=== PATIENT | female | born 1950 | race Caucasian/White ===

== ENCOUNTER 2016-12-03 19:30 | Emergency (ER) | payer MEDICARE, BC ==
[2016-12-03] MEDS ORDERED: METHYLPREDNISOLONE PF 125MG/VIAL IVP ONE (19:54)
[2016-12-03 20:28] LABS: BASO % 0.6 % (0-6); EOS % 3.8 % (0-6); GRAN % 60.3 % (47-80); HEMATOCRIT 40.4 % (35.0-47.0); HEMOGLOBIN 13.3 gm/dl (11.6-16.0); MEAN CELL VOLUME 90.6 fl (81-97); MEAN CORPUSCULAR HEMOGLOBIN 29.8 pg (27-33); MEAN CORPUSCULAR HGB CONC 32.9 g/dl (32-36); MEAN PLATELET VOLUME 10.6 fl (7.4-10.4); MONO % 7.3 % (0-9); PLATELET COUNT 222 K/uL (130-400); RED BLOOD COUNT 4.46 M/uL (3.80-5.40); RED CELL DISTRIBUTION WIDTH 13.1 % (11.5-14.5); WHITE BLOOD COUNT W/O DIFF 8.1 K/uL (4.2-12.2)
[2016-12-03 20:40] LABS: ANION GAP 15.9 (7-16); BLOOD UREA NITROGEN 12 mg/dL (7-17); CARBON DIOXIDE 23.1 mmol/L (22-30); CREATININE 0.6 mg/dL (0.52-1.04); EST GLOMERULAR FILTRATION RATE > 60 ml/min; GLUCOSE,RANDOM 124 mg/dL (70-110)
[2016-12-03 21:01] LABS: ERYTHROCYTE SEDIMENTATION RATE 5 mm/hr (0-30)
[2016-12-03 21:11] LABS: THYROID STIMULATING HORMONE 2.31 uIU/ml (0.465-4.68)
--- NOTE | 2016-12-03 21:37 | Emergency Department Record ---
History of Present Illness - General Chief Complaint: Difficulty Breathing Stated Complaint: ROBIN Time Seen by Provider: 12/03/16 19:45 Source: Patient Mode of Arrival: Wheelchair Limitations: No limitations - History of Present Illness Initial Comments: pt feels like she is having difficulty getting air out and resorts to pursed lip breathing. she feels like she has something obstructing her airway. she has had this problem for 2 months and is scheduled to see ent on monday [2 days] . her cough is usually nonproductive but brings up occasional flem. her symptoms improve when she lays flat. MD Complaint: Shortness of breath Onset/Timin -: Days(s) Severity: Mild Quality: Other Consistency: Other Improves With: Other Worsens With: Other Known History Of: Other Context: Other Associated Symptoms: Denies other symptoms, Cough, Sputum production Treatments Prior to Arrival: None - Related Data Home Medications Medication Instructions Recorded Confirmed Last Taken Cholecalciferol (Vitamin D3) 50,000 unit PO WEEKLY cap 12/10/15 12/03/16 [Vitamin D3] Allergies Allergy/AdvReac Type Severity Reaction Status Date / Time erythromycin base Allergy Intermediate ABDOMINAL Unverified 11/23/16 10:04 PAIN hydrocodone bitartrate AdvReac Intermediate ALTERED Unverified 11/23/16 10:04 [From Vicodin] MENTAL STATUS prednisone AdvReac Mild ALTERED Unverified 11/23/16 10:04 MENTAL STATUS Travel Screening - Travel/Exposure Within Last 30 Days Have you traveled within the last 30 days?: No - Travel/Exposure Within Last Year Have you traveled outside the [place] in the last year?: No - Additonal Travel Details Have you been exposed to anyone with a communicable illness?: No - Travel Symptoms Symptom Screening: None Review of Systems Reviewed: No additional complaints except as noted below Constitutional: Reports: As per HPI. Denies: Chills, Fever, Malaise, Night sweats, Weakness, Weight change Eyes: Reports: As per HPI. Denies: Eye discharge, Eye pain, Photophobia, Vision change ENT: Reports: As per HPI. Denies: Congestion, Dental pain, Ear pain, Epistaxis , Hearing loss, Throat pain Respiratory: Reports: As per HPI. Denies: Cough, Dyspnea, Hemoptysis, Stridor, Wheezes Cardiovascular: Reports: As per HPI. Denies: Arrhythmia, Chest pain, Dyspnea on exertion, Edema, Murmurs, Orthopnea, Palpitations, Paroxysmal nocturnal dyspnea, Rheumatic Fever, Syncope Endocrine: Reports: As per HPI. Denies: Fatigue, Heat or cold intolerance, Polydipsia, Polyuria Gastrointestinal: Reports: As per HPI. Denies: Abdominal pain, Constipation, Diarrhea, Hematemesis, Hematochezia, Melena, Nausea, Vomiting Genitourinary: Reports: As per HPI. Denies: Abnormal menses, Discharge, Dyspareunia, Dysuria, Frequency, Hematuria, Incontinence, Retention, Urgency Musculoskeletal: Reports: As per HPI. Denies: Arthralgia, Back pain, Gout, Joint swelling, Myalgia, Neck pain Skin: Reports: As per HPI. Denies: Bruising, Change in color, Change in hair/ nails, Lesions, Pruritus, Rash Neurological: Reports: As per HPI. Denies: Abnormal gait, Confusion, Headache, Numbness, Paresthesias, Seizure, Tingling, Tremors, Vertigo, Weakness Psychiatric: Reports: As per HPI. Denies: Anxiety, Auditory hallucinations, Depression, Homicidal thoughts, Suicidal thoughts, Visual hallucinations Hematological/Lymphatic: Reports: As per HPI. Denies: Anemia, Blood Clots, Easy bleeding, Easy bruising, Swollen glands Past Medical History - SOCIAL HISTORY Smoking Status: Former smoker Alcohol Use: None Drug Use: None - RESPIRATORY Hx Respiratory Disorders: Yes Hx Asthma: Yes Hx COPD: Yes - CARDIOVASCULAR Hx Cardio Disorders: Yes Hx Hypertension: Yes (Lisinopril good control) - NEURO Hx Neuro Disorders: Yes Hx Dizziness: Yes (hx vertigo "water in ears") - GI Hx GI Disorders: Yes Hx Diverticulitis: Yes Hx of Polyps: Yes (2" polyp removed surgically-not CA) - Hx Genitourinary Disorders: No Comment:: hyst - ENDOCRINE Hx Endocrine Disorders: Yes Hx Thyroid Disease: Yes - MUSCULOSKELETAL Hx Musculoskeletal Disorders: Yes Hx Arthritis: Yes Hx Back Injury: Yes - PSYCH Hx Psych Problems: No - HEMATOLOGY/ONCOLOGY Hx Hematology/Oncology Disorders: Yes Hx Anemia: Yes (in past,not now) Hx Blood Transfusions: Yes Hx Blood Transfusion Reaction: No Family Medical History Any Significant Family History?: No Hx Alcohol Use: Father, Mother, Brother/Sister Hx Anxiety: Mother Hx Cancer: Mother *Cancer Comment: breast Hx Dementia: Father Hx Depression: Mother Hx Diabetes: Mother *Heart Comment: uncle Hx HTN: Father, Mother Hx Kidney Disease: Children *Kidney Comment: son-kidney stones Hx Resp Disorders: Father, Mother *Resp Comment: copd *Stroke Comment: aunt Physical Exam - General General Appearance: Alert, Oriented x3, Cooperative, Mild distress - Head Head exam: Normal inspection - Eye Eye exam: Normal appearance, PERRL, EOMI Pupils: Normal accommodation - ENT ENT exam: Normal exam, Mucous membranes moist, Normal external ear exam, Normal orophraynx Ear exam: Normal external inspection. negative: External canal tenderness Nasal Exam: Normal inspection. negative: Discharge, Sinus tenderness Mouth exam: Normal external inspection, Tongue normal Teeth exam: Normal inspection. negative: Dental caries Throat exam: Normal inspection. negative: Tonsillar erythema, Tonsillar exudate - Neck Neck exam: Normal inspection, Full ROM. negative: Tenderness - Respiratory Respiratory exam: Normal lung sounds bilaterally. negative: Respiratory distress - Cardiovascular Cardiovascular Exam: Regular rate, Normal rhythm, Normal heart sounds - GI/Abdominal GI/Abdominal exam: Soft, Normal bowel sounds. negative: Tenderness - Rectal Rectal exam: Deferred - exam: Deferred - Extremities Extremities exam: Normal inspection, Full ROM, Normal capillary refill. negative: Tenderness - Back Back exam: Reports: Normal inspection, Full ROM. Denies: Muscle spasm, Rash noted, Tenderness - Neurological Neurological exam: Alert, Normal gait, Oriented X3, Reflexes normal - Psychiatric Psychiatric exam: Normal affect, Normal mood - Skin Skin exam: Dry, Intact, Normal color, Warm Course Vital Signs 12/03/16 12/03/16 19:33 20:00 Temperature 98.1 F Pulse Rate 81 93 H Respiratory 24 Rate Blood Pressure 162/77 Pulse Ox 97 96 - Reevaluation(s) Reevaluation #1: 12/03/16 21:37 pt feels better 12/03/16 21:42 Medical Decision Making - Lab Data Result diagrams: 12/03/16 20:20 12/03/16 20:20 Lab Results 12/03/16 12/03/16 Range/Units 20:20 20:20 WBC 8.1 (4.2-12.2) K/uL RBC 4.46 (3.80-5.40) M/uL Hgb 13.3 (11.6-16.0) gm/dl Hct 40.4 (35.0-47.0) % MCV 90.6 (81-97) fl MCH 29.8 (27-33) pg MCHC 32.9 (32-36) g/dl RDW 13.1 (11.5-14.5) % Plt Count 222 (130-400) K/uL MPV 10.6 H (7.4-10.4) fl Gran % 60.3 (47-80) % Lymphocytes % 28.0 (16-45) % Monocytes % 7.3 (0-9) % Eosinophils % 3.8 (0-6) % Basophils % 0.6 (0-6) % ESR 5 (0-30) mm/hr Sodium 140 (136-145) mmol/L Potassium 4.1 (3.5-5.1) mmol/L Chloride 101 (98-107) mmol/L Carbon Dioxide 23.1 (22-30) mmol/L Anion Gap 15.9 (7-16) BUN 12 (7-17) mg/dL Creatinine 0.6 (0.52-1.04) mg/dL Estimated GFR > 60 ml/min Random Glucose 124 H (70-110) mg/dL Calcium 8.8 (8.5-10.1) mg/dL TSH 2.31 (0.465-4.68) uIU/ml Disposition Disposition: Discharge Clinical Impression: Shortness of Breath Disposition: Home, Self-Care Condition: (1) Good Instructions: Dyspnea (ED) Additional Instructions: follow up with ent on monday without fail. return sooner if worse Forms: Patient Portal Access
--- NOTE | 2016-12-07 05:16 | RADIOLOGY REPORT ---
EXAM: NECK, SOFT TISSUE HISTORY: DYSPNEA. CONGESTION. TECHNIQUE: Soft tissue neck, two views. FINDINGS: No precervical soft tissue swelling. There are mild scattered degenerative changes within the cervical spine. IMPRESSION: UNREMARKABLE NECK SOFT TISSUE RADIOGRAPHS. JOB NUMBER: [id number] MTDD
--- NOTE | 2016-12-07 05:17 | RADIOLOGY REPORT ---
EXAM: CHEST 2 VIEWS HISTORY: DYSPNEA. TECHNIQUE: Chest two-view. COMPARISON: 07/04/16. FINDINGS: The heart is not enlarged. There appears to be scattered linear densities within the lungs favoring atelectasis or scar. No focal consolidation or pleural effusion. IMPRESSION: SCATTERED ATELECTASIS OR SCARRING WITHIN THE LUNGS. NO CLEARLY ACUTE CARDIOPULMONARY ABNORMALITY. JOB NUMBER: [id number] MTDD
== END 2016-12-03 21:54 | disposition home or self-care (01) ==
LOC: ER 19:30
DX: R06.02 Shortness of breath (principal); R05 Cough; I10 Essential (primary) hypertension; J44.9 Chronic obstructive pulmonary disease, unspecified; Z87.891 Personal history of nicotine dependence
CPT/HCPCS: 70360; 71020; 80048; 84443; 85025; 85651; 94640; 96374; 99284; J2930

== ENCOUNTER 2017-03-23 11:23 | Day surgery (SDC) | payer MEDICARE, BC ==
[2017-03-23] MEDS ORDERED: MIDAZOLAM HCL 2MG/2ML VIAL IV ONE (14:00)
[2017-03-23] MEDS ORDERED: PROPOFOL 10 MG/ML VIAL IV ONE (14:00)
[2017-03-23] MEDS ORDERED: LIDOCAINE 2% MDV (20MG/ML) 20ML VIAL IV ONE (14:00)
--- NOTE | 2017-03-28 11:22 | Operative Note ---
DATE OF SURGERY: 03/23/2017 OPERATION: ESOPHAGOGASTRODUODENOSCOPY with biopsy. PREOPERATIVE DIAGNOSIS: Heartburn. POSTOPERATIVE DIAGNOSIS: Irregular Z line, otherwise normal exam. PROCEDURE: After informed consent was obtained from the patient, she was placed in the left lateral decubitus position in the endoscopy suite, sedated and monitored by the department of anesthesia. A well-lubricated OGL216 gastroscope was placed in the posterior oropharynx and under direct visualization passed to the proximal esophagus. The endoscope was advanced through the proximal, mid, and distal esophagus. The GE junction was slightly irregular. The remainder of the esophagus was normal. The gastric body, antrum, pylorus, duodenal bulb and sweep were unrevealing. J-turn views of the proximal stomach were unremarkable. The endoscope was then straightened. The irregular Z line was biopsied. The endoscope removed from the patient with no new findings noted. RECOMMENDATIONS: Based on the patient's breakthrough symptoms, it seems reasonable to increase her omeprazole to 20 mg twice per day. We will await results of tissue histology. As always, thank you for allowing me to participate in the healthcare of your patients. CC: Dr. babatunde WHELAN
== END 2017-03-23 13:30 | disposition home or self-care (01) ==
LOC: HOP 11:23
PROVIDERS: ATTEND Internal Medicine Gastroenterology
DX: K21.0 Gastro-esophageal reflux disease with esophagitis (principal); I10 Essential (primary) hypertension; E03.9 Hypothyroidism, unspecified

== ENCOUNTER 2017-07-22 23:52 | Emergency (ER) | payer MEDICARE, BC | END 2017-07-23 00:35 | disposition left against medical advice (07) | LOC: ER 23:52 | DX: Z53.20 Procedure and treatment not carried out because of patient's decision for unspecified reasons (principal) ==

== ENCOUNTER 2017-07-23 14:16 | Emergency (ER) | payer MEDICARE, BC ==
[2017-07-23] MEDS ORDERED: DIPHENHYDRAMINE HCL IV 50 MG/ML VIAL IVP ONE (15:14)
[2017-07-23] MEDS ORDERED: METHYLPREDNISOLONE PF 125MG/VIAL IVP ONE (15:14)
[2017-07-23] MEDS ORDERED: IPRATROPIUM/ALBUTEROL (0.5MG/3MG) NEB INH ONE (15:29)
[2017-07-23 17:01] LABS: BASO % 0.5 % (0-6); EOS % 2.6 % (0-6); GRAN % 64.1 % (47-80); HEMATOCRIT 41.5 % (35.0-47.0); HEMOGLOBIN 13.3 gm/dl (11.6-16.0); LYMPH % 24.9 % (16-45); MEAN CELL VOLUME 89.2 fl (81-97); MEAN CORPUSCULAR HEMOGLOBIN 28.6 pg (27-33); MEAN PLATELET VOLUME 10.9 fl (7.4-10.4); MONO % 7.9 % (0-9); PLATELET COUNT 231 K/uL (130-400); RED BLOOD COUNT 4.65 M/uL (3.80-5.40); RED CELL DISTRIBUTION WIDTH 13.8 % (11.5-14.5); WHITE BLOOD COUNT W/O DIFF 7.8 K/uL (4.2-12.2)
[2017-07-23 17:23] LABS: ALB/GLOB RATIO 1.7 (1.1-1.8); ALBUMIN 4.5 g/dL (4.0-5.0); ALKALINE PHOSPHATASE 75 U/L (35-104); ALT/SGPT 23 U/L (<33); AST/SGOT 18 U/L (10.0-35.0); BLOOD UREA NITROGEN 12 mg/dL (8-23); CREATININE 0.7 mg/dL (0.5-0.9); EST GLOMERULAR FILTRATION RATE > 60 mL/min; GLUCOSE,RANDOM 100 mg/dL (74-109); TOTAL PROTEIN 7.1 g/dL (6.6-8.7)
--- NOTE | 2017-07-23 18:30 | Emergency Department Record ---
History of Present Illness - General Chief Complaint: Shortness of breath Stated Complaint: SHORTNESS OF BREATH Time Seen by Provider: 07/23/17 14:46 Source: Patient Mode of Arrival: Ambulatory Limitations: No limitations - History of Present Illness Initial Comments: pt feels she is having trouble getting air in and out. she has had these problems for months. she has seen an ent and gi dr and dr stephenson. she has been dxd with reflux. she comes because she is frustrated with not being able to control it. MD Complaint: Shortness of breath Onset/Timin -: Week(s) Improves With: Rest Known History Of: Asthma, COPD Associated Symptoms: Denies other symptoms - Related Data Previous Rx's Medication Instructions Recorded Levofloxacin [Levaquin Tab] 500 mg PO DAILY #9 tab 07/23/17 Allergies Allergy/AdvReac Type Severity Reaction Status Date / Time erythromycin base Allergy Intermediate ABDOMINAL Verified 07/23/17 14:50 PAIN hydrocodone bitartrate AdvReac Intermediate ALTERED Verified 07/23/17 14:50 [From Vicodin] MENTAL STATUS prednisone AdvReac Mild ALTERED Verified 07/23/17 14:50 MENTAL STATUS Travel Screening - Travel/Exposure Within Last 30 Days Have you traveled within the last 30 days?: No - Travel/Exposure Within Last Year Have you traveled outside the [place] in the last year?: No - Additonal Travel Details Have you been exposed to anyone with a communicable illness?: No - Travel Symptoms Symptom Screening: None Review of Systems Reviewed: No additional complaints except as noted below Constitutional: Reports: As per HPI. Denies: Chills, Fever, Malaise, Night sweats, Weakness, Weight change Eyes: Reports: As per HPI. Denies: Eye discharge, Eye pain, Photophobia, Vision change ENT: Reports: As per HPI. Denies: Congestion, Dental pain, Ear pain, Epistaxis , Hearing loss, Throat pain Respiratory: Reports: As per HPI. Denies: Cough, Dyspnea, Hemoptysis, Stridor, Wheezes Cardiovascular: Reports: As per HPI. Denies: Arrhythmia, Chest pain, Dyspnea on exertion, Edema, Murmurs, Orthopnea, Palpitations, Paroxysmal nocturnal dyspnea, Rheumatic Fever, Syncope Endocrine: Reports: As per HPI. Denies: Fatigue, Heat or cold intolerance, Polydipsia, Polyuria Gastrointestinal: Reports: As per HPI. Denies: Abdominal pain, Constipation, Diarrhea, Hematemesis, Hematochezia, Melena, Nausea, Vomiting Genitourinary: Reports: As per HPI. Denies: Abnormal menses, Discharge, Dyspareunia, Dysuria, Frequency, Hematuria, Incontinence, Retention, Urgency Musculoskeletal: Reports: As per HPI. Denies: Arthralgia, Back pain, Gout, Joint swelling, Myalgia, Neck pain Skin: Reports: As per HPI. Denies: Bruising, Change in color, Change in hair/ nails, Lesions, Pruritus, Rash Neurological: Reports: As per HPI. Denies: Abnormal gait, Confusion, Headache, Numbness, Paresthesias, Seizure, Tingling, Tremors, Vertigo, Weakness Psychiatric: Reports: As per HPI. Denies: Anxiety, Auditory hallucinations, Depression, Homicidal thoughts, Suicidal thoughts, Visual hallucinations Hematological/Lymphatic: Reports: As per HPI. Denies: Anemia, Blood Clots, Easy bleeding, Easy bruising, Swollen glands Past Medical History - SOCIAL HISTORY Smoking Status: Former smoker Alcohol Use: None Drug Use: None - RESPIRATORY Hx Respiratory Disorders: Yes Hx Asthma: Yes Hx Bronchitis: Yes Hx COPD: Yes Hx Pneumonia: Yes - CARDIOVASCULAR Hx Cardio Disorders: Yes Hx Chest Pain: Yes (AUGUST- NOTHING WRONG IN ED) Hx Hypertension: Yes - NEURO Hx Neuro Disorders: Yes Hx Dizziness: Yes (hx vertigo "water in ears") - GI Hx GI Disorders: Yes Hx Diverticulitis: Yes Hx Reflux: Yes Hx of Polyps: Yes (2" polyp removed surgically-not CA) Comment:: CONSTIPATION - Hx Genitourinary Disorders: No Comment:: hyst - ENDOCRINE Hx Endocrine Disorders: Yes Hx Thyroid Disease: Yes - MUSCULOSKELETAL Hx Musculoskeletal Disorders: Yes Hx Arthritis: Yes Hx Back Injury: Yes - PSYCH Hx Psych Problems: No - HEMATOLOGY/ONCOLOGY Hx Hematology/Oncology Disorders: Yes Hx Anemia: Yes Hx Blood Transfusions: Yes Hx Blood Transfusion Reaction: No Family Medical History Any Significant Family History?: No Hx Alcohol Use: Father, Mother, Brother/Sister Hx Anxiety: Mother Hx Cancer: Mother *Cancer Comment: breast Hx Dementia: Father Hx Depression: Mother Hx Diabetes: Mother *Heart Comment: uncle Hx HTN: Father, Mother Hx Kidney Disease: Children *Kidney Comment: son-kidney stones Hx Resp Disorders: Father, Mother *Resp Comment: copd *Stroke Comment: aunt Physical Exam - General General Appearance: Alert, Oriented x3, Cooperative, Mild distress, Other (pt frequently does forced pursed lip breathing and lip smacking.) - Head Head exam: Normal inspection - Eye Eye exam: Normal appearance, PERRL, EOMI Pupils: Normal accommodation - ENT ENT exam: Normal exam, Mucous membranes moist, Normal external ear exam, Normal orophraynx Ear exam: Normal external inspection. negative: External canal tenderness Nasal Exam: Normal inspection. negative: Discharge, Sinus tenderness Mouth exam: Normal external inspection, Tongue normal Teeth exam: Normal inspection. negative: Dental caries Throat exam: Normal inspection. negative: Tonsillar erythema, Tonsillar exudate - Neck Neck exam: Normal inspection, Full ROM. negative: Tenderness - Respiratory Respiratory exam: Normal lung sounds bilaterally. negative: Respiratory distress - Cardiovascular Cardiovascular Exam: Regular rate, Normal rhythm, Normal heart sounds - GI/Abdominal GI/Abdominal exam: Soft, Normal bowel sounds. negative: Tenderness - Rectal Rectal exam: Deferred - exam: Deferred - Extremities Extremities exam: Normal inspection, Full ROM, Normal capillary refill. negative: Tenderness - Back Back exam: Reports: Normal inspection, Full ROM. Denies: Muscle spasm, Rash noted, Tenderness - Neurological Neurological exam: Alert, CN II-XII intact, Normal gait, Oriented X3 - Psychiatric Psychiatric exam: Normal affect, Normal mood - Skin Skin exam: Dry, Intact, Normal color, Warm Course Vital Signs 07/23/17 07/23/17 14:31 15:54 Temperature 99.3 F Pulse Rate 89 86 Respiratory 18 16 Rate Blood Pressure 135/79 Pulse Ox 97 96 Medical Decision Making - Lab Data Result diagrams: 07/23/17 15:42 07/23/17 15:42 Lab Results 07/23/17 07/23/17 Range/Units 15:42 15:42 WBC 7.8 (4.2-12.2) K/uL RBC 4.65 (3.80-5.40) M/uL Hgb 13.3 (11.6-16.0) gm/dl Hct 41.5 (35.0-47.0) % MCV 89.2 (81-97) fl MCH 28.6 (27-33) pg MCHC 32.0 (32-36) g/dl RDW 13.8 (11.5-14.5) % Plt Count 231 (130-400) K/uL MPV 10.9 H (7.4-10.4) fl Gran % 64.1 (47-80) % Lymphocytes % 24.9 (16-45) % Monocytes % 7.9 (0-9) % Eosinophils % 2.6 (0-6) % Basophils % 0.5 (0-6) % Sodium 143 (136-145) mmol/L Potassium 3.8 (3.4-4.5) mmol/L Chloride 101 (98-107) mmol/L Carbon Dioxide 30.0 H (22-29) mmol/L Anion Gap 12.0 (7-16) BUN 12 (8-23) mg/dL Creatinine 0.7 (0.5-0.9) mg/dL Estimated GFR > 60 mL/min Random Glucose 100 (74-109) mg/dL Calcium 9.2 (8.8-10.2) mg/dL Total Bilirubin 0.30 (0.2-1.0) mg/dL AST 18 (10.0-35.0) U/L ALT 23 (<33) U/L Alkaline Phosphatase 75 (35-104) U/L Total Protein 7.1 (6.6-8.7) g/dL Albumin 4.5 (4.0-5.0) g/dL Globulin 2.6 (1.4-4.8) gm/dL Albumin/Globulin Ratio 1.7 (1.1-1.8) Disposition Disposition: Discharge Clinical Impression: Dystonia, Tardive dyskinesia Pneumonia Qualifiers: Pneumonia type: due to unspecified organism Laterality: left Lung location: unspecified part of lung Qualified Code(s): J18.9 - Pneumonia, unspecified organism Disposition: Home, Self-Care Condition: (1) Good Instructions: Pneumonitis (ED) Additional Instructions: follow up with family doctor. return sooner if worse. take benadryl every 6 hours as needed Prescriptions: Levofloxacin [Levaquin Tab] 500 mg PO DAILY #9 tab Forms: Patient Portal Access Quality - Quality Measures Quality Measures: N/A - Blood Pressure Screening Does Patient Have Any of the Following: No Blood Pressure Classification: Pre-Hypertensive BP Reading Systolic Measurement: 135 Diastolic Measurement: 79 Screening for High Blood Pressure: < Pre-Hypertensive BP, F/U Documented > [ G8950] Pre-Hypertensive Follow-up Interventions: Follow-up with rescreen every year.
[2017-07-23] MEDS ORDERED: LEVOFLOXACIN 500 MG TABLET PO ONE (18:36)
--- NOTE | 2017-07-24 13:04 | RADIOLOGY REPORT ---
EXAM: CHEST, TWO VIEWS HISTORY: SHORTNESS OF BREATH. TECHNIQUE: PA and lateral views of the chest were obtained. Comparison: Two view chest 12/03/16. FINDINGS: Stable heart size. The lungs appear slightly hyperinflated which may represent some underlying COPD. On the lateral view there is a suggestion of some mild streaky atelectasis or infiltrate in the lingula or right middle lobe, although difficult to confirm in either location on the frontal view. No pleural effusion or pneumothorax evident. IMPRESSION: THE LUNGS APPEAR SOMEWHAT HYPERINFLATED WHICH MAY REPRESENT SOME UNDERLYING COPD. SUGGESTION OF MILD INFILTRATE OR ATELECTASIS IN EITHER THE LINGULA OR RIGHT MIDDLE LOBE ON THE LATERAL VIEW, NOT CONFIRMED ON THE FRONTAL VIEW. JOB NUMBER: [id number] MTDD
--- NOTE | 2017-07-24 13:20 | CT SCAN REPORT ---
EXAM: EMERGENCY HEAD CT HISTORY: INVOLUNTARY MOVEMENTS. TECHNIQUE: Axial CT scan of the head was performed without IV contrast. Comparison: None. FINDINGS: No definite acute intracranial hemorrhage identified. No focal mass effect or midline shift apparent. No definite acute infarct or intracranial mass lesion seen. No depressed calvarial fracture is evident. If the patient' s neurologic symptoms persist, follow-up brain MRI may be useful for further evaluation if not contraindicated. There is probably some mild benign type frontal hyperostosis interna bilaterally incidentally noted. IMPRESSION: EMERGENCY NONCONTRAST HEAD CT APPEARS ESSENTIALLY NEGATIVE WITH NO DEFINITE ACUTE INTRACRANIAL HEMORRHAGE OR FOCAL MASS EFFECT IDENTIFIED. IF NEUROLOGIC SYMPTOMS PERSIST, A FOLLOW-UP BRAIN MRI WOULD BE SUGGESTED FOR FURTHER EVALUATION IF NOT CONTRAINDICATED. JOB NUMBER: [id number] MTDD
== END 2017-07-23 19:07 | disposition home or self-care (01) ==
LOC: ER 14:16
DX: J18.9 Pneumonia, unspecified organism (principal); G24.9 Dystonia, unspecified; G24.01 Drug induced subacute dyskinesia; Z87.891 Personal history of nicotine dependence; J44.9 Chronic obstructive pulmonary disease, unspecified; I10 Essential (primary) hypertension
CPT/HCPCS: 70450; 71020; 80053; 85025; 94640; 96374; 96375; 99284; J1200; J2930